=== PATIENT | female | born 1965 | race African-American/Black ===

== ENCOUNTER 2017-08-22 18:01 | Emergency (ER) | payer MEDICAID ==
[~2017-08-22] VITALS: Ht 142.2 cm; Wt 58.0 kg
[2017-08-22 18:21] VITALS: BP 141/90
== END 2017-08-22 18:51 | disposition home or self-care (01) ==
LOC: ER 18:37
DX: Z77.098 Contact with and (suspected) exposure to other hazardous, chiefly nonmedicinal, chemicals (principal); J45.909 Unspecified asthma, uncomplicated; Y93.G1 Activity, food preparation and clean up; Y92.89 Other specified places as the place of occurrence of the external cause; Y99.8 Other external cause status
CPT/HCPCS: 99282

== ENCOUNTER 2018-12-03 15:40 | Emergency (ER) | payer MEDICAID ==
[~2018-12-03] VITALS: Ht 142.2 cm; Wt 62.0 kg
[2018-12-03] MEDS ORDERED: KETOROLAC 60MG/2ML VIAL IM ONE (16:15)
[2018-12-03 17:19] VITALS: BP 147/95
== END 2018-12-03 17:22 | disposition home or self-care (01) ==
LOC: ER 15:40
DX: S63.502A Unspecified sprain of left wrist, initial encounter (principal); J45.909 Unspecified asthma, uncomplicated; F17.200 Nicotine dependence, unspecified, uncomplicated; F12.10 Cannabis abuse, uncomplicated; W01.0XXA Fall on same level from slipping, tripping and stumbling without subsequent striking against object, initial encounter; Y93.01 Activity, walking, marching and hiking; Y92.89 Other specified places as the place of occurrence of the external cause; Y99.8 Other external cause status
CPT/HCPCS: 29125; 73110; 73130; 96372; 99283; J1885

== ENCOUNTER 2021-02-24 10:13 | Emergency (ER) | payer MEDICAID ==
[~2021-02-24] VITALS: Ht 142.2 cm; Wt 61.0 kg
[2021-02-24] MEDS ORDERED: KETOROLAC 60MG/2ML VIAL IM ONE (11:00)
[2021-02-24 11:08] VITALS: BP 161/93
[2021-02-24] MEDS ORDERED: DIPHENHYDRAMINE 25MG CAPSULE PO ONE (11:15)
[2021-02-24] MEDS ORDERED: ACYC200C MT (11:29)
[2021-02-24] MEDS ORDERED: IBUP-2029 MT (11:29)
[2021-02-24] MEDS ORDERED: HYDR-4001 MT (11:29)
[2021-02-24] MEDS ORDERED: DIPH25CA83 MT (11:29)
== END 2021-02-24 11:49 | disposition home or self-care (01) ==
LOC: ER 10:13
DX: B02.9 Zoster without complications (principal); F12.90 Cannabis use, unspecified, uncomplicated
CPT/HCPCS: 96372; 99283; J1885; Q0163

== ENCOUNTER 2021-10-18 14:39 | Emergency (ER) | payer MEDICAID ==
[~2021-10-18] VITALS: Ht 142.2 cm; Wt 60.0 kg
[~2021-10-18 14:39] MED LIST: ACYC200C31 MT; DIPH25CA83 MT; HYDR-4001 MT; IBUP-2029 MT
[2021-10-18 14:52] VITALS: BP 144/75
[2021-10-18] MEDS ORDERED: ACETAMINOPHEN 325MG TABLET PO ONE (16:30)
[2021-10-18] MEDS ORDERED: GUAI-741 MT (17:39)
== END 2021-10-18 18:16 | disposition home or self-care (01) ==
LOC: ER 14:50
DX: J06.9 Acute upper respiratory infection, unspecified (principal); Z20.822 Contact with and (suspected) exposure to COVID-19; R03.0 Elevated blood-pressure reading, without diagnosis of hypertension; J45.909 Unspecified asthma, uncomplicated; F12.90 Cannabis use, unspecified, uncomplicated
CPT/HCPCS: 71045; 87426; 87804; 99284

== ENCOUNTER 2023-04-30 11:34 | Emergency (ER) | payer MEDICAID ==
[~2023-04-30] VITALS: Ht 160 cm; Wt 71.0 kg
[~2023-04-30 11:34] MED LIST changes: +GUAI-741 MT
[2023-04-30 12:00] VITALS: TEMP 98.1; O2SAT 99
[2023-04-30 13:15] VITALS: BP 170/103; PULSE 75; RESP 18
[2023-04-30] MEDS ORDERED: KETOROLAC 15MG/ML VIAL IM ONE (13:15)
[2023-04-30] MEDS ORDERED: NAPR-1176 MT (13:40)
== END 2023-04-30 16:26 | disposition home or self-care (01) ==
LOC: ER 11:34
DX: S63.391A Traumatic rupture of other ligament of right wrist, initial encounter (principal); X58.XXXA Exposure to other specified factors, initial encounter; Y93.89 Activity, other specified; Y92.89 Other specified places as the place of occurrence of the external cause; Y99.8 Other external cause status
CPT/HCPCS: 99283; 73130; 29125; 96372; J1885

== ENCOUNTER 2023-05-19 14:43 | Emergency (ER) | payer MEDICAID ==
[~2023-05-19] VITALS: Ht 142.2 cm; Wt 58.9 kg
[~2023-05-19 14:43] MED LIST changes: +NAPR-1176 MT
[2023-05-19 15:12] VITALS: BP 138/96; PULSE 88; RESP 20; TEMP 98.8; O2SAT 98
[2023-05-20] MEDS ORDERED: AZIT250T12 MT (09:35)
[2023-05-20] MEDS ORDERED: ALBU6.7H15 INH (09:35)
[2023-05-20] MEDS ORDERED: MED4 MT (09:35)
== END 2023-05-19 16:37 | disposition left against medical advice (07) ==
LOC: ER 14:43
DX: R05.9 Cough, unspecified (principal); Z53.21 Procedure and treatment not carried out due to patient leaving prior to being seen by health care provider
CPT/HCPCS: 99281

== ENCOUNTER 2023-05-20 07:50 | Emergency (ER) | payer MEDICAID ==
[~2023-05-20] VITALS: Ht 152.4 cm; Wt 64.0 kg
[2023-05-20 07:56] VITALS: BP 151/93; O2SAT 98
[2023-05-20 08:24] LABS: BASOPHILS % 0.4 % (0.0-2.0); DIFFERENTIAL COMMENT 0; EOSINOPHILS % 0.1 % (0.0-5.0); HEMATOCRIT. 37.9 % (36.0-48.0); HEMOGLOBIN. 11.8 g/dL (12.0-16.0); LYMPHOCYTES % 63.9 % (20.0-50.0); MEAN CORPUSCULAR HEMOGLOBIN 22.3 pg (28.0-32.0); MEAN CORPUSCULAR HGB CONC 31.2 g/dL (31.0-37.0); MEAN CORPUSCULAR VOLUME 71.4 fL (81.0-99.0); MEAN PLATELET VOLUME 7.4 fl (7.4-10.4); MONOCYTES % 4.8 % (2.0-8.0); NEUTROPHILS % 30.8 % (40.0-76.0); PLATELET 258 x1000/uL (130-400); RED BLOOD CELL COUNT 5.31 mill/uL (4.2-5.4); RED CELL DISTRIBUTION WIDTH 19.4 % (11.6-14.6); WHITE BLOOD COUNT 4.4 x1000/uL (4.5-11.0)
[2023-05-20 08:42] LABS: ALANINE AMINOTRANSFERASE 14 IU/L (10-49); ALBUMIN 4.1 g/dL (3.2-4.8); ASPARTATE AMINOTRANSFERASE 30 IU/L (<34); BILIRUBIN TOTAL 0.5 mg/dL (0.1-1.0); CALCIUM 9.4 mg/dL (8.7-10.4); CARBON DIOXIDE 24 mEq/L (21-32); CHLORIDE 110 mEq/L (98-107); CREATININE 0.7 mg/dL (0.6-1.0); GLUCOSE 133 mg/dL (70-105); POTASSIUM 3.5 mEq/L (3.5-5.1); PROTEIN TOTAL 7.1 g/dL (6.0-8.3); SODIUM 140 mEq/L (136-145)
[2023-05-20 08:47] LABS: PROTHROMBIN TIME 11.2 sec (9.6-11.0)
[2023-05-20 08:54] LABS: CLARITY URINE SL HAZY (CLEAR); COLOR URINE YELLOW (YELLOW); GLUCOSE URINE NEGATIVE (NEGATIVE); PH URINE 5.5 (4.5-8.0); PROTEIN URINE NEGATIVE (NEGATIVE); SPECIFIC GRAVITY URINE 1.025 (1.005-1.030)
[2023-05-20 08:55] LABS: KETONES URINE TRACE (NEGATIVE); LEUKOCYTE ESTERASE URINE NEGATIVE (NEGATIVE); NITRITE URINE NEGATIVE (NEGATIVE); OCCULT BLOOD URINE NEGATIVE (NEGATIVE); UROBILINOGEN URINE 0.2 E.U./dL (0.2-1.0)
[2023-05-20 09:06] LABS: TROPONIN I HIGH SENSITIVITY < 4 ng/L (3.0-34); UREA NITROGEN BLOOD < 5 mg/dL (9-23)
[2023-05-20] MEDS ORDERED: ALBU6.7H15 INH (09:35)
[2023-05-20] MEDS ORDERED: AZIT250T12 MT (09:35)
[2023-05-20] MEDS ORDERED: MED4 MT (09:35)
[2023-05-20 09:45] VITALS: PULSE 112; RESP 18; TEMP 98
== END 2023-05-20 09:46 | disposition home or self-care (01) ==
LOC: ER 07:50
DX: J06.9 Acute upper respiratory infection, unspecified (principal); I10 Essential (primary) hypertension; F12.10 Cannabis abuse, uncomplicated; J45.909 Unspecified asthma, uncomplicated
CPT/HCPCS: 36415; 71045; 80053; 81003; 81025; 84484; 85025; 93005; 99285